=== PATIENT | female | born 1970 | race American Indian/Alaskan Native ===

== ENCOUNTER 2018-12-04 05:48 | Emergency (ER) | payer OTHER ==
[2018-12-04] MEDS ORDERED: ASPIRIN 325 MG TAB PO ONE (05:53)
[2018-12-04 06:42] LABS: Basophils % (Auto) 0.7 % (0.0-1.8); Eosinophils # (Auto) 0.1 K/mm3 (0.0-0.4); Hematocrit 39.3 % (30.3-42.9); Hemoglobin 12.6 gm/dl (10.1-14.3); Lymphocytes # (Auto) 2.3 K/mm3 (1.2-5.4); Lymphocytes % (Auto) 47.6 % (13.4-35.0); Mean Corpuscular HGB Conc 32 % (30-34); Mean Corpuscular Volume 85 fl (79-97); Monocytes # (Auto) 0.4 K/mm3 (0.0-0.8); Monocytes % (Auto) 7.9 % (0.0-7.3); Platelet Count 303 K/mm3 (140-440); Red Blood Count 4.64 M/mm3 (3.65-5.03); Red Cell Distribution Width 13.7 % (13.2-15.2)
--- NOTE | 2018-12-04 06:47 | XRay Report ---
CHEST 1 VIEW INDICATION / CLINICAL INFORMATION: Chest Pain. COMPARISON: Chest radiograph 03/06/2007 FINDINGS: SUPPORT DEVICES: None. HEART / MEDIASTINUM: No significant abnormality. LUNGS / PLEURA: No significant pulmonary or pleural abnormality. No pneumothorax. ADDITIONAL FINDINGS: No significant additional findings. IMPRESSION: 1. No acute findings. Signer Name: Cassy Fleming MD Signed: 12/04/2018 6:42 AM Workstation Name: [id number]
[2018-12-04 07:18] LABS: BUN/Creatinine Ratio 21; Blood Urea Nitrogen 15 mg/dL (7-17); Calcium 8.8 mg/dL (8.4-10.2); Hemolysis Index 19
[2018-12-04] MEDS ORDERED: ASPIRIN 325 MG TAB ONE (08:22)
--- NOTE | 2018-12-04 08:27 | Emergency Department Report ---
ED Chest Pain HPI - General Chief Complaint: Chest Pain Stated Complaint: CHEST DISCOMFORT,LT SIDESORENESS Time Seen by Provider: 12/04/18 08:14 Source: patient Mode of arrival: Ambulatory Limitations: No Limitations - History of Present Illness Initial Comments: Pt is a 48-year-old female presents to emergency room with complaints of substernal chest pain that began a week ago. States the pain is a constant soreness and is worse at night. States that she has associated shortness of breath at night. She states that she has also been having mild lower back pain for 2 days and urinary frequency. denies any fall or injury. Denies any pleuritic chest pain, diaphoresis, lower extremity edema, vomiting,abdominal pain, dysuria. She states that [place] She denies any recent travel, recent surgery, recent immobilization, hormone use. Denies any past medical history or allergies to medications. Denies any personal or family cardiac history. denies any personal or family history of DVT/PE. She has never had a stress test before. Her last menstrual cycle was last week. - Related Data Previous Rx's Medication Instructions Recorded Last Taken Type Cyclobenzaprine [Flexeril] 10 mg PO QHS PRN #7 tablet 12/04/18 Unknown Rx Naproxen [EC-Naprosyn] 500 mg PO BID PRN #14 tablet. 12/04/18 Unknown Rx Allergies Allergy/AdvReac Type Severity Reaction Status Date / Time No Known Allergies Allergy Verified 12/04/18 05:53 Heart Score - HEART Score History: Slightly suspicious EKG: Normal Age: 45-65 Risk factors: No known risk factors Troponin: < normal limit HEART Score: 1 ED Review of Systems ROS: Stated complaint: CHEST DISCOMFORT,LT SIDESORENESS Other details as noted in HPI Comment: All other systems reviewed and negative ED Past Medical Hx - Past Medical History Previous Medical History?: No - Surgical History Past Surgical History?: No - Social History Smoking Status: Never Smoker Substance Use Type: None - Medications Home Medications: Home Medications Medication Instructions Recorded Confirmed Last Taken Type Cyclobenzaprine [Flexeril] 10 mg PO QHS PRN #7 tablet 12/04/18 Unknown Rx Naproxen [EC-Naprosyn] 500 mg PO BID PRN #14 tablet. 12/04/18 Unknown Rx ED Physical Exam - General Limitations: No Limitations General appearance: alert, in no apparent distress - Head Head exam: Present: atraumatic, normocephalic - Eye Eye exam: Present: normal appearance - ENT ENT exam: Present: mucous membranes moist - Respiratory Respiratory exam: Present: normal lung sounds bilaterally, chest wall tenderness (reproducible left anterior chest wall TTP, no deformity, no crepitus). Absent: respiratory distress, wheezes, rales, rhonchi, stridor, accessory muscle use, decreased breath sounds, prolonged expiratory - Cardiovascular Cardiovascular Exam: Present: regular rate, normal rhythm, normal heart sounds. Absent: systolic murmur, diastolic murmur, rubs, gallop - GI/Abdominal GI/Abdominal exam: Present: soft, normal bowel sounds. Absent: distended, tenderness, guarding, rebound, rigid - Neurological Exam Neurological exam: Present: alert, oriented X3 - Psychiatric Psychiatric exam: Present: normal affect, normal mood - Skin Skin exam: Present: warm, dry, intact ED Course Vital Signs 12/04/18 12/04/18 12/04/18 05:49 08:34 08:38 Temperature 98.3 F Pulse Rate 67 64 87 Respiratory 16 20 17 Rate Blood Pressure 127/83 Blood Pressure 127/61 [Right] O2 Sat by Pulse 100 100 Oximetry 12/04/18 12/04/18 12/04/18 08:46 09:00 09:16 Temperature Pulse Rate 58 L 57 L 56 L Respiratory 26 H 19 21 Rate Blood Pressure 127/80 127/80 123/74 Blood Pressure [Right] O2 Sat by Pulse 100 100 100 Oximetry 12/04/18 12/04/18 12/04/18 09:30 09:46 10:00 Temperature Pulse Rate 47 L 63 60 Respiratory 19 27 H 19 Rate Blood Pressure 123/74 123/74 123/74 Blood Pressure [Right] O2 Sat by Pulse 100 100 100 Oximetry 12/04/18 12/04/18 12/04/18 10:03 10:16 10:30 Temperature Pulse Rate 63 60 61 Respiratory 17 27 H 15 Rate Blood Pressure 112/69 112/69 Blood Pressure 124/59 [Right] O2 Sat by Pulse 100 100 100 Oximetry 12/04/18 12/04/18 12/04/18 10:46 11:00 11:16 Temperature Pulse Rate 56 L 61 58 L Respiratory 25 H 19 25 H Rate Blood Pressure 112/69 112/69 121/71 Blood Pressure [Right] O2 Sat by Pulse 100 97 99 Oximetry 12/04/18 12/04/18 12/04/18 11:32 11:45 12:00 Temperature 98.3 F Pulse Rate 60 62 61 Respiratory 17 21 12 Rate Blood Pressure 112/69 108/72 Blood Pressure 111/72 [Right] O2 Sat by Pulse 99 98 100 Oximetry - Reevaluation(s) Reevaluation #1: 12/04/18 09:39 faxed face sheet to [facility] for follow up for low risk chest pain to have further cardiology work up OSWALDO score - Oswaldo Score Age > 65: (0) No Aspirin use within the Past 7 Days: (0) No 3 or more CAD Risk Factors: (0) No 2 or more Angina events in past 24 hrs: (0) No Known CAD with more than 50% Stenosis: (0) No Elevated Cardiac Markers: (0) No ST Deviation Greater than 0.5mm: (0) No OSWALDO Score: 0 ED Medical Decision Making - Lab Data Result diagrams: 12/04/18 06:14 12/04/18 06:14 Lab Results 12/04/18 12/04/18 12/04/18 Range/Units 06:14 06:14 08:28 WBC 4.9 (4.5-11.0) K/mm3 RBC 4.64 (3.65-5.03) M/mm3 Hgb 12.6 (10.1-14.3) gm/dl Hct 39.3 (30.3-42.9) % MCV 85 (79-97) fl MCH 27 L (28-32) pg MCHC 32 (30-34) % RDW 13.7 (13.2-15.2) % Plt Count 303 (140-440) K/mm3 Lymph % (Auto) 47.6 H (13.4-35.0) % [place] % (Auto) 7.9 H (0.0-7.3) % Eos % (Auto) 3.0 (0.0-4.3) % Baso % (Auto) 0.7 (0.0-1.8) % Lymph # 2.3 (1.2-5.4) K/mm3 [place] # 0.4 (0.0-0.8) K/mm3 Eos # 0.1 (0.0-0.4) K/mm3 Baso # 0.0 (0.0-0.1) K/mm3 Seg Neutrophils % 40.8 (40.0-70.0) % Seg Neutrophils # 2.0 (1.8-7.7) K/mm3 D-Dimer (0-234) ng/mlDDU Sodium 139 (137-145) mmol/L Potassium 4.3 (3.6-5.0) mmol/L Chloride 104.7 (98-107) mmol/L Carbon Dioxide 26 (22-30) mmol/L Anion Gap 13 mmol/L BUN 15 (7-17) mg/dL Creatinine 0.7 (0.7-1.2) mg/dL Estimated GFR > 60 ml/min BUN/Creatinine Ratio 21 % Glucose 84 (65-100) mg/dL Calcium 8.8 (8.4-10.2) mg/dL Total Creatine Kinase (30-135) units/L Troponin T < 0.010 < 0.010 (0.00-0.029) ng/mL NT-Pro-B Natriuret Pep (0-450) pg/mL Urine Color (Yellow) Urine Turbidity (Clear) Urine pH (5.0-7.0) Ur Specific [place] (1.003-1.030) Urine Protein (Negative) mg/dL Urine Glucose (UA) (Negative) mg/dL Urine Ketones (Negative) mg/dL Urine Blood (Negative) Urine Nitrite (Negative) Ur Reducing Substances Urine Bilirubin (Negative) Urine Ictotest Urine Urobilinogen (<2.0) mg/dL Ur Leukocyte Esterase (Negative) Urine WBC (Auto) (0.0-6.0) /HPF Urine RBC (Auto) (0.0-6.0) /HPF U Epithel Cells (Auto) (0-13.0) /HPF Urine Bacteria (Auto) (Negative) /HPF Urine Mucus /HPF Urine HCG, Qual (Negative) 12/04/18 12/04/18 12/04/18 Range/Units 08:28 08:28 08:46 WBC (4.5-11.0) K/mm3 RBC (3.65-5.03) M/mm3 Hgb (10.1-14.3) gm/dl Hct (30.3-42.9) % MCV (79-97) fl MCH (28-32) pg MCHC (30-34) % RDW (13.2-15.2) % Plt Count (140-440) K/mm3 Lymph % (Auto) (13.4-35.0) % [place] % (Auto) (0.0-7.3) % Eos % (Auto) (0.0-4.3) % Baso % (Auto) (0.0-1.8) % Lymph # (1.2-5.4) K/mm3 [place] # (0.0-0.8) K/mm3 Eos # (0.0-0.4) K/mm3 Baso # (0.0-0.1) K/mm3 Seg Neutrophils % (40.0-70.0) % Seg Neutrophils # (1.8-7.7) K/mm3 D-Dimer < 135.00 (0-234) ng/mlDDU Sodium (137-145) mmol/L Potassium (3.6-5.0) mmol/L Chloride (98-107) mmol/L Carbon Dioxide (22-30) mmol/L Anion Gap mmol/L BUN (7-17) mg/dL Creatinine (0.7-1.2) mg/dL Estimated GFR ml/min BUN/Creatinine Ratio % Glucose (65-100) mg/dL Calcium (8.4-10.2) mg/dL Total Creatine Kinase 139 H (30-135) units/L Troponin T (0.00-0.029) ng/mL NT-Pro-B Natriuret Pep 71.84 (0-450) pg/mL Urine Color Straw (Yellow) Urine Turbidity Clear (Clear) Urine pH 6.0 (5.0-7.0) Ur Specific [place] 1.013 (1.003-1.030) Urine Protein <15 mg/dl (Negative) mg/dL Urine Glucose (UA) Neg (Negative) mg/dL Urine Ketones Neg (Negative) mg/dL Urine Blood Neg (Negative) Urine Nitrite Neg (Negative) Ur Reducing Substances Not Reportable Urine Bilirubin Neg (Negative) Urine Ictotest Not Reportable Urine Urobilinogen < 2.0 (<2.0) mg/dL Ur Leukocyte Esterase Neg (Negative) Urine WBC (Auto) < 1.0 (0.0-6.0) /HPF Urine RBC (Auto) 1.0 (0.0-6.0) /HPF U Epithel Cells (Auto) 1.0 (0-13.0) /HPF Urine Bacteria (Auto) 1+ (Negative) /HPF Urine Mucus Few /HPF Urine HCG, Qual Negative (Negative) - EKG Data EKG shows normal: sinus rhythm, axis, QRS complexes, ST-T waves Rate: normal - EKG Data 12/04/18 08:38 prolonged TN interval at 231 second EKG at 10:07 AM on 12/04/18 sinus edinson at 58 bpm normal axis normal intervals normal ST-T waves - Radiology Data Radiology results: report reviewed CHEST 1 VIEW INDICATION / CLINICAL INFORMATION: Chest Pain. COMPARISON: Chest radiograph 03/06/2007 FINDINGS: SUPPORT DEVICES: None. HEART / MEDIASTINUM: No significant abnormality. LUNGS / PLEURA: No significant pulmonary or pleural abnormality. No pneumothorax. ADDITIONAL FINDINGS: No significant additional findings. IMPRESSION: 1. No acute findings. Signer Name: Cassy Fleming MD Signed: 12/04/2018 6:42 AM Workstation Name: [id number] Transcribed By: [facility] Dictated By: Cassy Fleming MD Electronically Authenticated By: Cassy Fleming MD Signed Date/Time: 12/04/18 0642 - Medical Decision Making Pt is a 48-year-old female presents to emergency room with complaints of substernal chest pain that began a week ago. States the pain is a constant soreness and is worse at night. States that she has associated shortness of breath at night. She states that she has also been having mild lower back pain for 2 days and urinary frequency. denies any fall or injury. Denies any pleuritic chest pain, diaphoresis, lower extremity edema, vomiting,abdominal pain, dysuria. She states that [place] She denies any recent travel, recent surgery, recent immobilization, hormone use. Denies any past medical history or allergies to medications. Denies any personal or family cardiac history. denies any personal or family history of DVT/PE. She has never had a stress test before. Her last menstrual cycle was last week. vitals are normal. on exam: reproducible left anterior chest wall TTP, no deformity, no crepitus. Heart Score is 1, OSWALDO score is 0. PERC criteria negative and wells criteria very low probability for PE. Initial EKG with mildly prolonged TN interval at 231 otherwise normal, repeat EKG is normal except for sinus bradycardia at 58. chest X-ray with no acute process. D-dimer negative. troponin is negative 2. labs are stable. UA without evidence of UTI. urine is negative. expect musculosketeal as chest pain is chest wall pain and it is reproducible, pt will be given anti- inflammatory and muscle relaxer. pts face sheet faxed to [facility] to have outpatient cardiology workup in a timely manner. based on OSWALDO and heart score is very low risk for a cardiac event and patient is a candidate for outpatient evaluation. advised patient that [facility] should be contacting her within the next 2 days but if they do not then to contact them. advised Patient to take medication as prescribed as needed. do not drive or operate heavy machinery while taking muscle relaxer. follow up with the rail director and your primary care doctor the next 2-3 days. return to the emergency room immediately for any new or worsening symptoms. - Differential Diagnosis ACS, PE, costochrondritis, AA, valve dysfunction, arrhythmia, GERD/PUD Critical care attestation.: If time is entered above; I have spent that time in minutes in the direct care of this critically ill patient, excluding procedure time. ED Disposition Clinical Impression: Chest pain Qualifiers: Chest pain type: unspecified Qualified Code(s): R07.9 - Chest pain, unspecified Disposition: DC-01 TO HOME OR SELFCARE Is pt being admited?: No Does the pt Need Aspirin: No Condition: Stable Instructions: Chest Pain (ED) Additional Instructions: [facility] should be contacting you within the next 2 days but if they do not then to contact them. taylor medication as prescribed as needed. do not drive or operate heavy machinery while taking muscle relaxer. follow up with the rail director and your primary care doctor the next 2-3 days. return to the emergency room immediately for any new or worsening symptoms. Prescriptions: Cyclobenzaprine [Flexeril] 10 mg PO QHS PRN #7 tablet PRN Reason: Muscle Spasm Naproxen [EC-Naprosyn] 500 mg PO BID PRN #14 tablet.dr MILNER Reason: pain Referrals: [facility] [Provider Group] - 2-3 Days [facility] [Provider Group] - 2-3 Days Time of Disposition: 11:51 Print Language: YORUBA
[2018-12-04 09:18] LABS: HCG Qualitative,Urine Negative (Negative)
[2018-12-04 09:20] LABS: Bacteria,Urine 1+ /HPF (Negative); Bilirubin,Urine NEG (Negative); Blood,Urine NEG (Negative); Color,Urine Straw (Yellow); Mucus,Urine FEW /HPF; Protein,Urine <15 mg/dL mg/dL (Negative); Urobilinogen,Urine < 2.0 mg/dL (<2.0)
[2018-12-04] MEDS ORDERED: KETOROLAC 30 MG/1 ML INJ IM ONE (09:32)
[2018-12-04] MEDS ORDERED: ACETAMINOPHEN 500 MG TAB PO ONE (09:38)
--- NOTE | 2018-12-04 09:41 | Event Note ---
Date of service: 12/04/18 Face to Face: [id number] examination This is a pleasant 48-year-old female, not known to this provider previously, presenting to the ER with nontraumatic left-sided chest pain for over a week. EKG within normal limits 1, troponin negative 1, not tachycardic, not hypoxic, she endorses shortness of breath while at home, at night, but it is not exertional, not present at the moment. She denies DVT, pulmonary embolism risk factors and is low risk by well's criteria, and IS PERC negative Troponin negative 1, and the context of 1 week of symptoms, as per the [employer] clinical policy, myocardial infarction may be excluded with 1 set of cardiac enzymes if symptoms present for greater than 8 hours. Counseled patient that she is at low risk for major adverse cardiac event. Plan is to treat her symptoms, and she will be referred to [facility] cardiology. This department has an institutional protocol in place whereby patients who are low risk for major adverse cardiac event as per the heart score may obtain an expedited outpatient follow-up with one of our local vo[facility] engineer practices. This is discussed with the patient, who verbalizes understanding, and is amenable to this plan of care. plan of care also discussed with LYLA Chan Vital Signs 12/04/18 12/04/18 05:49 08:38 Temperature 98.3 F Pulse Rate 67 87 Respiratory 16 17 Rate Blood Pressure 127/83 Blood Pressure 127/61 [Right] O2 Sat by Pulse 100 100 Oximetry Lab Results 12/04/18 12/04/18 12/04/18 Range/Units 06:14 06:14 08:46 WBC 4.9 (4.5-11.0) K/mm3 RBC 4.64 (3.65-5.03) M/mm3 Hgb 12.6 (10.1-14.3) gm/dl Hct 39.3 (30.3-42.9) % MCV 85 (79-97) fl MCH 27 L (28-32) pg MCHC 32 (30-34) % RDW 13.7 (13.2-15.2) % Plt Count 303 (140-440) K/mm3 Lymph % (Auto) 47.6 H (13.4-35.0) % [place] % (Auto) 7.9 H (0.0-7.3) % Eos % (Auto) 3.0 (0.0-4.3) % Baso % (Auto) 0.7 (0.0-1.8) % Lymph # 2.3 (1.2-5.4) K/mm3 [place] # 0.4 (0.0-0.8) K/mm3 Eos # 0.1 (0.0-0.4) K/mm3 Baso # 0.0 (0.0-0.1) K/mm3 Seg Neutrophils % 40.8 (40.0-70.0) % Seg Neutrophils # 2.0 (1.8-7.7) K/mm3 Sodium 139 (137-145) mmol/L Potassium 4.3 (3.6-5.0) mmol/L Chloride 104.7 (98-107) mmol/L Carbon Dioxide 26 (22-30) mmol/L Anion Gap 13 mmol/L BUN 15 (7-17) mg/dL Creatinine 0.7 (0.7-1.2) mg/dL Estimated GFR > 60 ml/min BUN/Creatinine Ratio 21 % Glucose 84 (65-100) mg/dL Calcium 8.8 (8.4-10.2) mg/dL Troponin T < 0.010 (0.00-0.029) ng/mL Ur Reducing Substances Not Reportable Urine Bilirubin Neg (Negative) Urine Ictotest Not Reportable Urine RBC (Auto) 1.0 (0.0-6.0) /HPF U Epithel Cells (Auto) 1.0 (0-13.0) /HPF Urine HCG, Qual Negative (Negative)
[2018-12-04] MEDS: IBUPROFEN 400 MG TAB PO ONE ×2 (09:54→09:58)
[2018-12-04] MEDS: FAMOTIDINE 20 MG TAB PO ONE ×2 (09:55→09:59)
[2018-12-04 10:22] LABS: WBC,Urine < 1.0 /HPF (0.0-6.0)
[2018-12-04 12:11] VITALS: BP 108/72
== END 2018-12-04 12:10 | disposition home or self-care (01) ==
LOC: ED 05:48
DX: R07.89 Other chest pain (principal); R06.02 Shortness of breath; M54.5 Low back pain
CPT/HCPCS: 36415; 71045; 80048; 81001; 81025; 82550; 83880; 84484; 85025; 85379; 93005; 93010; 96372

== ENCOUNTER 2020-08-22 07:23 | Outpatient (CLI) | payer OTHER ==
--- NOTE | 2020-08-29 08:05 | Mammography Report ---
DIGITAL SCREENING MAMMOGRAM WITH CAD, 08/22/2020 INDICATION: Routine screening mammography. TECHNIQUE: Digital bilateral 2D mammography was obtained in the craniocaudal and mediolateral obliq ue projections. This examination was interpreted with the benefit of Computer-Aided Detection analysi s. COMPARISON: 04/20/2019 FINDINGS: Breast Density: The breasts are heterogeneously dense, which may obscure small masses. There is no evidence of dominant mass, suspicious calcifications or architectural distortion in eithe r breast. IMPRESSION: Follow up recommendation: Routine yearly BI-RADS Category 1: Negative. A "normal" or negative report should not discourage follow up or biopsy of a clinically significant f inding. A written summary of these findings will be mailed to the patient. The patient will be entered into a mammography reporting system which will generate a reminder letter for the patient's next appointmen t at the appropriate interval. The [employer] recommends yearly mammograms starting at age 40 and continuing as l luiz as a woman is in good health. Breast MRI is recommended for women with an approximate 20-25% or greater lifetime risk of breast cancer, including women with a strong family history of breast or ova brittaney cancer or who have been treated for Hodgkin's disease. Signer Name: Ash Jasso MD Signed: 08/29/2020 8:00 AM Workstation Name: [id number]
== END 2020-08-22 07:24 | disposition home or self-care (01) ==
LOC: MAMMO 07:23
PROVIDERS: ATTEND Internal Medicine
DX: Z12.31 Encounter for screening mammogram for malignant neoplasm of breast (principal)
CPT/HCPCS: 77067